=== PATIENT | male | born 1955 | race Caucasian/White ===

== ENCOUNTER 2018-05-06 20:37 | Emergency (ER) | payer OTHER ==
[~2018-05-06] VITALS: Ht 172.7 cm; Wt 124.7 kg
[~2018-05-06 20:37] MED LIST: CYCL10 PO; Mobic7.5 MG PO; Norco 5-325 Ta1 EACH PO; Prinivil10 MG PO
[2018-05-06] MEDS ORDERED: KETO10 PO (22:25)
== END 2018-05-06 22:32 | disposition home or self-care (01) ==
LOC: ER 20:37
DX: S83.8X2A Sprain of other specified parts of left knee, initial encounter (principal); X58.XXXA Exposure to other specified factors, initial encounter
CPT/HCPCS: 73562-LT; 99283-25

== ENCOUNTER 2018-10-20 08:08 | Day surgery (SDC) | payer OTHER ==
[~2018-10-20] VITALS: Ht 172.7 cm; Wt 122.2 kg
[~2018-10-20 08:08] MED LIST changes: +KETO10 PO
--- NOTE | 2018-10-20 09:06 | NUR ---
Ambulatory in Day Surgery History, Chart, Medications and Allergies reviewed before start of procedure. Lungs clear T/O to Auscultation. Patient confirms NPO status and agrees with scheduled surgery. Pre-Op teaching done. Pt verbalizes understanding.
--- NOTE | 2018-10-20 14:56 | NUR ---
pt able to wiggle toes and feels pressure from touch.
--- NOTE | 2018-10-20 17:28 | NUR ---
summary PT ARRIVED TO UNIT FROM PACU THIS AFTERNOON. AFTER INITIAL NUMBNESS AND TINGLING WORE OFF, PT STOOD W/EMERGENCY ROOM PHYSICIAN AND RN USING GAIT BELT AND WALKER AND TRANSFERRED TO RECLINER. NOW RECLINED IN RECLINER W/POLAR PACK AND PAS ON. MEDICATED PER ORDERS FOR PAIN. CALL LIGHT IN REACH.
[2018-10-20 23:12] LABS: BASOPHILS ABSOLUTE AUTO 0.02 K/mm3 (0.00-0.23); BASOPHILS PERCENT AUTO 0 % (0-2); EOSINOPHILS PERCENT AUTO 0 % (0-6); Hematocrit 44.5 % (37.0-53.0); Hemoglobin 14.8 g/dL (13.5-17.5); IMMATURE GRAN ABSOLUTE AUTO 0.06 K/mm3 (0.00-0.10); IMMATURE GRAN PERCENT AUTO 0 % (0-1); LYMPHOCYTES ABSOLUTE AUTO 0.77 K/mm3 (0.84-5.20); LYMPHOCYTES PERCENT AUTO 4 % (21-46); MONOCYTES ABSOLUTE AUTO 0.43 K/mm3 (0.16-1.47); MONOCYTES PERCENT AUTO 3 % (4-13); Mean Corpuscular HGB 29.5 pg (26.0-34.0); Mean Corpuscular HGB Conc 33.3 g/dL (31.5-36.5); Mean Corpuscular Volume 89 fL (80-100); Mean Platelet Volume 9.1 fL (9.1-12.4); NEUTROPHILS ABSOLUTE AUTO 16.15 K/mm3 (1.96-9.15); NEUTROPHILS PERCENT AUTO 93 % (41-73); Platelet Count 177 K/mm3 (150-400); RDW Coefficient Variation 14.4 % (11.7-14.2); Red Blood Cell Count 5.01 M/mm3 (4.30-5.90); White Blood Cell Count 17.43 K/mm3 (4.00-11.30)
[2018-10-20 23:28] LABS: Bun/Creatinine Ratio 18.5 (12.0-20.0); Calcium, Blood 8.4 mg/dL (8.5-10.1); Creatinine, Blood 1.35 mg/dL (0.60-1.20); Potassium, Blood 3.5 mmol/L (3.5-5.5)
[2018-10-21 00:28] LABS: Source, Urine Clean Catch
[2018-10-21 00:31] LABS: Bilirubin, Urine Neg (Neg); Blood, Urine 1+ (Neg); Glucose Qualitative, Urine 4+ (Neg); Ketones, Urine Neg (Neg); Leukocyte Esterase, Urine Neg (Neg); Nitrite, Urine Neg (Neg); Protein, Urine 2+ (Neg); Specific Gravity, Urine 1.015 (1.003-1.022); Urobilinogen, Urine NORM (Normal)
[2018-10-21 00:36] LABS: Appearance, Urine Clear (Clear); Color, Urine Yellow (P-Yellow)
[2018-10-21 00:45] LABS: Red Blood Cells, Urine 0-2 /hpf (0-2)
[2018-10-21 00:46] LABS: Bacteria Mod /hpf; Squamous Epithelial Cells Rare /hpf (Few)
[2018-10-21 04:13] LABS: BASOPHILS ABSOLUTE AUTO 0.02 K/mm3 (0.00-0.23); BASOPHILS PERCENT AUTO 0 % (0-2); EOSINOPHILS PERCENT AUTO 0 % (0-6); Hematocrit 44.2 % (37.0-53.0); Hemoglobin 14.6 g/dL (13.5-17.5); IMMATURE GRAN PERCENT AUTO 1 % (0-1); LYMPHOCYTES ABSOLUTE AUTO 1.08 K/mm3 (0.84-5.20); LYMPHOCYTES PERCENT AUTO 6 % (21-46); MONOCYTES ABSOLUTE AUTO 0.83 K/mm3 (0.16-1.47); MONOCYTES PERCENT AUTO 4 % (4-13); Mean Corpuscular HGB 29.3 pg (26.0-34.0); Mean Corpuscular Volume 89 fL (80-100); Mean Platelet Volume 9.6 fL (9.1-12.4); NEUTROPHILS ABSOLUTE AUTO 17.02 K/mm3 (1.96-9.15); NEUTROPHILS PERCENT AUTO 89 % (41-73); Platelet Count 187 K/mm3 (150-400); RDW Coefficient Variation 14.2 % (11.7-14.2); RDW Standard Deviation 45.7 fL (35.1-46.3); Red Blood Cell Count 4.99 M/mm3 (4.30-5.90); White Blood Cell Count 19.05 K/mm3 (4.00-11.30)
[2018-10-21 04:38] LABS: Anion Gap 7 mmol/L (6-16); Blood Urea Nitrogen 27 mg/dL (8-24); CHOL/HDL RATIO 5.7; CO2, Blood 30 mmol/L (21-32); Calcium, Blood 8.5 mg/dL (8.5-10.1); Chloride, Blood 101 mmol/L (98-108); Cholesterol 238 mg/dL (50-200); Creatinine, Blood 1.35 mg/dL (0.60-1.20); Glomerular Filtration Rate 57 (60-); Glucose, Blood 161 mg/dL (70-99); HDL Cholesterol 42 mg/dL (>39); Low Density Lipoprotein Chol 168 mg/dL (0-110); Magnesium, Blood 1.7 mg/dL (1.6-2.4); Potassium, Blood 3.2 mmol/L (3.5-5.5); Sodium, Blood 138 mmol/L (136-145); Triglycerides 140 mg/dL (30-160); Very Low Density Lipoprot Chol 28 mg/dL (6-32)
[2018-10-21 04:41] LABS: Thyroid Stimulating Hormone 0.426 uIU/mL (0.360-4.800)
--- NOTE | 2018-10-21 08:03 | NUR ---
SUMMARY POD #1 L TKA DRSG REMAINS C/D/I, PAIN MANAGED WITH PO PAIN MEDICATION. PT IS TOLERATING PO INTAKE, & VOIDING WNL. PT IS AMBULATING IN HALLS WITH 1 ASSIST USING FWW/GAIT BELT.
[2018-10-21] MEDS ORDERED: Percocet 5-3251 EACH PO (08:50)
[2018-10-21] MEDS ORDERED: XARELTO15 MG PO (08:51)
[2018-10-21] MEDS ORDERED: AMLO10 PO (15:32)
[2018-10-21] MEDS ORDERED: METF500 PO (15:32)
[2018-10-21] MEDS ORDERED: LEVFLO500 PO (15:33)
--- NOTE | 2018-10-21 18:10 | NUR ---
DISCHARGE PT WAS DISCHARGED AT APPROXIMATELY 1615. PT AND SIGNIFICANT OTHER WERE PROVIDED WITH WRITTEN AND VERBAL DISCHARGE INSTRUCTIONS. PT WAS PROVIDED WITH EDUCATION ABOUT ALL NEW MEDICATIONS. PT WAS ALSO EDUCATED BY DYLAN MILLER RN AND THIS RN REGARDING HYPERTENSION. MEDICATIONS CALLED TO PATIENTS PHARMACY, HARD SCRIPT PROVIDED FOR PAIN MEDICATION. PT EDUCATED CHECK BLOOD PRESSURE BEFORE TAKING BLOOD PRESSURE MEDICATION. PT WAS ALSO EDUCATED THAT HE WILL NEED TO FIND A PRIMARY CARE PROVIDER. PT WAS PROVIDED WITH A LIST OF ACCEPTING DOCTOR'S OFFICES. PT AND S/O REPORTED UNDERSTANDING DISCHARGE INSTRUCTIONS AFTER QUESTIONS WERE ANSWERED. PT WAS VERBALIZED FRUSTRATION THAT HE WAS EDUCATED ABOUT HYPERTENSION. VSS. WILL MONITOR UNTIL REPORT TO ONCOMING RN.
== END 2018-10-21 16:17 | disposition home or self-care (01) ==
LOC: SURS 08:08 → ORSCMMR 08:08 → ORD 10:00 → ORSCMMR 10:00 → SURS 13:36 → ORSCMMR 10-21 16:17
PROVIDERS: Nurse Practitioner Acute Care; Orthopaedic Surgery
PROC: 0SRD0JA Replacement of Left Knee Joint with Synthetic Substitute, Uncemented, Open Approach (ICD-10-PCS; principal; 2018-10-20 10:00)
DX: M17.12 Unilateral primary osteoarthritis, left knee (principal); G47.33 Obstructive sleep apnea (adult) (pediatric); F17.220 Nicotine dependence, chewing tobacco, uncomplicated; E66.01 Morbid (severe) obesity due to excess calories; Z68.41 Body mass index [BMI] 40.0-44.9, adult
CPT/HCPCS: 36415; 73560-LT; 80048; 80061; 81001; 82330; 83036; 83735; 84443; 85025; 86850; 86900; 86901; 87086; 88300; 97110; 97116; 97162; 97530; C1776; J0171; J0690; J0696; J0735; J1100; J1885; J2250; J2704; J2795; J7120

== ENCOUNTER 2018-12-19 12:53 | Emergency (ER) | payer OTHER ==
[~2018-12-19] VITALS: Ht 172.7 cm; Wt 112.9 kg
[~2018-12-19 12:53] MED LIST changes: +AMLO10 PO; +LEVFLO500 PO; +METF500 PO; +Percocet 5-3251 EACH PO; +XARELTO15 MG PO
[2018-12-19 13:32] LABS: BASOPHILS ABSOLUTE AUTO 0.02 K/mm3 (0.00-0.23); BASOPHILS PERCENT AUTO 0 % (0-2); EOSINOPHILS ABSOLUTE AUTO 0.19 K/mm3 (0.00-0.68); EOSINOPHILS PERCENT AUTO 2 % (0-6); Hematocrit 46.4 % (37.0-53.0); Hemoglobin 15.4 g/dL (13.5-17.5); IMMATURE GRAN ABSOLUTE AUTO 0.01 K/mm3 (0.00-0.10); IMMATURE GRAN PERCENT AUTO 0 % (0-1); LYMPHOCYTES PERCENT AUTO 12 % (21-46); MONOCYTES ABSOLUTE AUTO 0.37 K/mm3 (0.16-1.47); MONOCYTES PERCENT AUTO 4 % (4-13); Mean Corpuscular HGB 28.4 pg (26.0-34.0); Mean Corpuscular HGB Conc 33.2 g/dL (31.5-36.5); Mean Corpuscular Volume 86 fL (80-100); Mean Platelet Volume 9.6 fL (9.1-12.4); NEUTROPHILS ABSOLUTE AUTO 8.16 K/mm3 (1.96-9.15); NEUTROPHILS PERCENT AUTO 82 % (41-73); Platelet Count 215 K/mm3 (150-400); RDW Coefficient Variation 13.2 % (11.7-14.2); Red Blood Cell Count 5.42 M/mm3 (4.30-5.90); White Blood Cell Count 9.95 K/mm3 (4.00-11.30)
[2018-12-19 13:45] LABS: International Normalized Ratio 0.98; Prothrombin Time Results 10.4 Sec (9.7-11.5)
[2018-12-19 14:05] LABS: Alanine Aminotransfer (ALT/SGP 33 U/L (12-78); Albumin, Blood 3.4 g/dL (3.4-5.0); Alk Phos 90 U/L (50-136); Anion Gap 5 mmol/L (6-16); Aspartate Aminotrans (AST/SGOT 18 U/L (12-37); Bilirubin, Total 0.6 mg/dL (0.1-1.0); Blood Urea Nitrogen 21 mg/dL (8-24); Bun/Creatinine Ratio 18.1 (12.0-20.0); CO2, Blood 28 mmol/L (21-32); Calcium, Blood 8.9 mg/dL (8.5-10.1); Chloride, Blood 105 mmol/L (98-108); Creatinine, Blood 1.16 mg/dL (0.60-1.20); Globulin, Blood 3.4 g/dL (2.2-4.0); Glomerular Filtration Rate >60 (60-); Glucose, Blood 203 mg/dL (70-99); Sodium, Blood 138 mmol/L (136-145); Total Protein, Blood 6.8 g/dL (6.4-8.2)
[2018-12-19 18:31] LABS: Source, Urine Clean Catch
[2018-12-19 18:37] LABS: Bilirubin, Urine Neg (Neg); Blood, Urine 1+ (Neg); Glucose Qualitative, Urine Neg (Neg); Ketones, Urine Neg (Neg); Leukocyte Esterase, Urine Neg (Neg); Nitrite, Urine Neg (Neg); Protein, Urine 2+ (Neg); Specific Gravity, Urine 1.015 (1.003-1.022); Urobilinogen, Urine NORM (Normal)
[2018-12-19 18:43] LABS: Appearance, Urine Clear (Clear); Color, Urine Yellow (P-Yellow)
[2018-12-19 18:44] LABS: Mucus Light ({null, 0-Heavy}); Red Blood Cells, Urine 0-2 /hpf (0-2); White Blood Cells, Urine 0-2 /hpf (0-5)
[2018-12-19 18:45] LABS: Bacteria Few /hpf; Squamous Epithelial Cells Not Seen /hpf (Few)
[2018-12-19 19:51] LABS: U Amphetamine Screen Not Detected; U Barbituate Screen Not Detected; U Benzodiazapine Screen Not Detected; U Buprenorphine Screen Not Detected; U Cannabinoids Screen Not Detected; U Cocaine Screen Not Detected; U Methadone Screen Not Detected; U Methamphetamine Screen Not Detected; U Opiates Screen Not Detected; U Oxycodone Screen DETECTED; U Phencyclidine Screen Not Detected; U Propoxyphene Screen Not Detected
== END 2018-12-20 20:00 | disposition home or self-care (01) ==
LOC: ER 12:53
PROVIDERS: Emergency Medicine; Physician Assistant
DX: R47.1 Dysarthria and anarthria (principal); R25.1 Tremor, unspecified; Z79.899 Other long term (current) drug therapy
CPT/HCPCS: 36415; 70450; 70496; 70498; 80053; 81001; 85025; 85610; 93005; 93010; 99284-25; Q9967

== ENCOUNTER → 2020-12-02 | Outpatient (CLI) | payer OTHER ==
[2020-12-02 14:15] LABS: Stool Occult Bld Immuno 1 Positive (NEGATIVE)
== END | disposition home or self-care (01) ==
LOC: LAB SHORT 07:30 → LAB 07:30
PROVIDERS: Internal Medicine
DX: Z12.11 Encounter for screening for malignant neoplasm of colon (principal)
CPT/HCPCS: 82274

== ENCOUNTER → 2021-03-16 | Outpatient (CLI) | payer OTHER ==
[2021-03-17 13:59] LABS: Adenovirus F 40/41 Not Detected (NOT DETECT); Astrovirus Not Detected (NOT DETECT); Campylobacter Sp Not Detected (NOT DETECT); Cryptosporidium Not Detected (NOT DETECT); Cyclospora Cayetanensis Not Detected (NOT DETECT); E. Coli O157 Not Detected (NOT DETECT); Entamoeba Histolytica Not Detected (NOT DETECT); Enteroaggregative E. coli-EAEC Not Detected (NOT DETECT); Enteropathogenic E. coli-EPEC Not Detected (NOT DETECT); Enterotoxigenic E. coli-ETEC Not Detected (NOT DETECT); Giardia Lamblia Not Detected (NOT DETECT); Norovirus GI/GII Not Detected (NOT DETECT); Plesiomonas Shigelloides Not Detected (NOT DETECT); Rotavirus A Not Detected (NOT DETECT); Salmonella Sp Not Detected (NOT DETECT); Sapovirus Not Detected (NOT DETECT); Shiga Toxin-prod E. coli-STEC Not Detected (NOT DETECT); Shigella/Enteroin E. coli-EIEC Not Detected (NOT DETECT); Vibrio Cholerae Not Detected (NOT DETECT); Vibrio Sp Not Detected (NOT DETECT); Yersinia Enterocolitica Not Detected (NOT DETECT)
== END | disposition home or self-care (01) ==
LOC: LAB SHORT 10:33
PROVIDERS: Family Medicine
DX: K92.1 Melena (principal); R19.7 Diarrhea, unspecified
CPT/HCPCS: 0097U

== ENCOUNTER 2021-05-16 10:23 | Day surgery (SDC) | payer OTHER ==
[~2021-05-16] VITALS: Ht 172.7 cm; Wt 108.7 kg
[2021-05-16] MEDS ORDERED: POTA10T (10:50)
--- NOTE | 2021-05-16 12:11 | NUR ---
05/16/21 1211 Rama Leger 2ML NORMAL SALINE USED TO PRIME INJECTION NEEDLE
== END 2021-05-16 12:45 | disposition home or self-care (01) ==
LOC: ORSCSDS 10:23
PROVIDERS: Student in an Organized Health Care Education/Training Program
PROC: 0DBN8ZX Excision of Sigmoid Colon, Via Natural or Artificial Opening Endoscopic, Diagnostic (ICD-10-PCS; principal; 2021-05-16 12:15)
PROC: 3E0H8KZ Introduction of Other Diagnostic Substance into Lower GI, Via Natural or Artificial Opening Endoscopic (ICD-10-PCS; principal; 2021-05-16 12:15)
PROC: 0DBK8ZX Excision of Ascending Colon, Via Natural or Artificial Opening Endoscopic, Diagnostic (ICD-10-PCS; principal; 2021-05-16 12:15)
PROC: 0DBL8ZX Excision of Transverse Colon, Via Natural or Artificial Opening Endoscopic, Diagnostic (ICD-10-PCS; principal; 2021-05-16 12:15)
PROC: 0DBH8ZX Excision of Cecum, Via Natural or Artificial Opening Endoscopic, Diagnostic (ICD-10-PCS; principal; 2021-05-16 12:15)
DX: R93.3 Abnormal findings on diagnostic imaging of other parts of digestive tract (principal); R10.32 Left lower quadrant pain; C18.7 Malignant neoplasm of sigmoid colon; D12.3 Benign neoplasm of transverse colon; D12.2 Benign neoplasm of ascending colon; D12.0 Benign neoplasm of cecum; I10 Essential (primary) hypertension; G47.33 Obstructive sleep apnea (adult) (pediatric); E78.5 Hyperlipidemia, unspecified; E11.9 Type 2 diabetes mellitus without complications; N18.9 Chronic kidney disease, unspecified; F17.220 Nicotine dependence, chewing tobacco, uncomplicated
CPT/HCPCS: 88305; J2704; J7120

== ENCOUNTER 2021-05-29 02:39 | Day surgery (SDC) | payer OTHER ==
[~2021-05-29 02:39] MED LIST changes: +POTA10T
== END 2021-05-29 15:15 | disposition home or self-care (01) ==
LOC: ATC 02:39
DX: C18.9 Malignant neoplasm of colon, unspecified (principal); C79.51 Secondary malignant neoplasm of bone; E78.5 Hyperlipidemia, unspecified
CPT/HCPCS: 36569; C1751

== ENCOUNTER → 2021-05-31 | Outpatient (CLI) | payer OTHER ==
[2021-05-31 20:01] LABS: Albumin, Blood 3.3 g/dL (3.4-5.0); Albumin/Globulin Ratio 1.2 (0.8-1.8); Bilirubin, Total 0.4 mg/dL (0.1-1.0); Bun/Creatinine Ratio 12.7 (12.0-20.0); Calcium, Blood 8.7 mg/dL (8.5-10.1); Creatinine, Blood 1.26 mg/dL (0.60-1.20); Globulin, Blood 2.7 g/dL (2.2-4.0); Phosphorus, Blood 1.9 mg/dL (2.5-4.9); Potassium, Blood 3.2 mmol/L (3.5-5.5)
== END ==
LOC: LAB SHORT 09:07 → LAB 09:07
PROVIDERS: Internal Medicine Hematology & Oncology
DX: C18.9 Malignant neoplasm of colon, unspecified (principal)
CPT/HCPCS: 80053; 82378; 84100

== ENCOUNTER 2021-06-05 01:22 | Day surgery (SDC) | payer OTHER | END 2021-06-05 14:10 | disposition home or self-care (01) | LOC: ATC 01:22 | DX: Z45.2 Encounter for adjustment and management of vascular access device (principal); C18.9 Malignant neoplasm of colon, unspecified; C79.51 Secondary malignant neoplasm of bone; E78.5 Hyperlipidemia, unspecified | CPT/HCPCS: 99211 ==

== ENCOUNTER 2021-06-12 03:19 | Day surgery (SDC) | payer OTHER | END 2021-06-12 14:38 | disposition home or self-care (01) | LOC: ATC 03:19 | DX: C18.9 Malignant neoplasm of colon, unspecified (principal); C79.51 Secondary malignant neoplasm of bone | CPT/HCPCS: 36592 ==

== ENCOUNTER 2021-06-19 06:01 | Day surgery (SDC) | payer OTHER | END 2021-06-19 14:33 | disposition home or self-care (01) | LOC: ATC 06:01 | DX: Z45.2 Encounter for adjustment and management of vascular access device (principal); C18.9 Malignant neoplasm of colon, unspecified; C79.51 Secondary malignant neoplasm of bone; E78.5 Hyperlipidemia, unspecified | CPT/HCPCS: 99211 ==

== ENCOUNTER 2021-06-26 02:09 | Day surgery (SDC) | payer OTHER | END 2021-06-26 14:39 | disposition home or self-care (01) | LOC: ATC 02:09 | DX: C18.9 Malignant neoplasm of colon, unspecified (principal); C79.51 Secondary malignant neoplasm of bone; E78.5 Hyperlipidemia, unspecified | CPT/HCPCS: 99211 ==

== ENCOUNTER 2021-07-03 01:52 | Day surgery (SDC) | payer OTHER | END 2021-07-03 14:32 | disposition home or self-care (01) | LOC: ATC 01:52 | DX: Z45.2 Encounter for adjustment and management of vascular access device (principal); E78.5 Hyperlipidemia, unspecified; C18.9 Malignant neoplasm of colon, unspecified; C79.51 Secondary malignant neoplasm of bone | CPT/HCPCS: 99211 ==

== ENCOUNTER 2021-07-10 01:23 | Day surgery (SDC) | payer OTHER | END 2021-07-10 14:20 | disposition home or self-care (01) | LOC: ATC 01:23 | DX: Z45.2 Encounter for adjustment and management of vascular access device (principal); C18.9 Malignant neoplasm of colon, unspecified; C79.51 Secondary malignant neoplasm of bone | CPT/HCPCS: 99211 ==

== ENCOUNTER 2021-07-11 08:17 | Day surgery (SDC) | payer OTHER | END 2021-07-11 08:37 | disposition home or self-care (01) | LOC: ATC 08:17 | DX: Z45.2 Encounter for adjustment and management of vascular access device (principal); C18.9 Malignant neoplasm of colon, unspecified; C79.51 Secondary malignant neoplasm of bone | CPT/HCPCS: 99212 ==

== ENCOUNTER 2021-07-17 01:34 | Day surgery (SDC) | payer OTHER ==
--- NOTE | 2021-07-17 14:45 | NUR ---
PT'S BP ELEVATED, BP RE CHECK WITH MANUAL CUFF 140/110. PT CALLED DR. REYES'S OFFICE WHILE SITTING IN THE ROOM WITH THIS NURSING RESIDENT. DR. REYES STATES THAT PT HAS APPOINTMENT TOMORROW AND HE WILL FOLLOW UP WITH PT TOMORROW IN THE OFFICE RE: HIS ELEVATED BP. PT INSTRUCTED TO SEEK MEDICAL [place] BEFORE TOMORROW IF HE HAS ANY SYMPTOMS OF ELEVATED BP. PT VERBALIZES UNDERSTANDING.
== END 2021-07-17 14:45 | disposition home or self-care (01) ==
LOC: ATC 01:34
DX: C18.9 Malignant neoplasm of colon, unspecified (principal); C79.51 Secondary malignant neoplasm of bone
CPT/HCPCS: 99211

== ENCOUNTER 2021-07-24 14:25 | Day surgery (SDC) | payer OTHER ==
[2021-07-24] MEDS ORDERED: ONDA4ODT MM (15:31)
[2021-07-24] MEDS ORDERED: LOSARTAN POTASS25 M2 PO (15:31)
== END 2021-07-24 14:45 | disposition home or self-care (01) ==
LOC: ATC 14:25
DX: Z45.2 Encounter for adjustment and management of vascular access device (principal); C19 Malignant neoplasm of rectosigmoid junction; C79.51 Secondary malignant neoplasm of bone; E78.5 Hyperlipidemia, unspecified; Z96.652 Presence of left artificial knee joint
CPT/HCPCS: 99211

== ENCOUNTER 2021-07-31 01:29 | Day surgery (SDC) | payer OTHER ==
[~2021-07-31 01:29] MED LIST changes: +LOSARTAN POTASS25 M2 PO; +ONDA4ODT MM
== END 2021-07-31 15:05 | disposition home or self-care (01) ==
LOC: ATC 01:29
DX: C18.9 Malignant neoplasm of colon, unspecified (principal); C79.51 Secondary malignant neoplasm of bone; Z96.652 Presence of left artificial knee joint
CPT/HCPCS: 99211

== ENCOUNTER 2021-08-07 01:21 | Day surgery (SDC) | payer OTHER | END 2021-08-07 14:41 | disposition home or self-care (01) | LOC: ATC 01:21 | DX: C19 Malignant neoplasm of rectosigmoid junction (principal); C79.51 Secondary malignant neoplasm of bone | CPT/HCPCS: 99211 ==

== ENCOUNTER 2021-08-14 01:05 | Day surgery (SDC) | payer OTHER | END 2021-08-14 14:30 | disposition home or self-care (01) | LOC: ATC 01:05 | DX: Z45.2 Encounter for adjustment and management of vascular access device (principal); C18.9 Malignant neoplasm of colon, unspecified; C79.51 Secondary malignant neoplasm of bone; E78.5 Hyperlipidemia, unspecified | CPT/HCPCS: 99211 ==

== ENCOUNTER 2021-08-21 01:22 | Day surgery (SDC) | payer OTHER | END 2021-08-21 14:55 | disposition home or self-care (01) | LOC: ATC 01:22 | DX: C18.9 Malignant neoplasm of colon, unspecified (principal); C79.51 Secondary malignant neoplasm of bone; E78.5 Hyperlipidemia, unspecified | CPT/HCPCS: 99211 ==

== ENCOUNTER 2021-08-28 01:02 | Day surgery (SDC) | payer OTHER ==
--- NOTE | 2021-08-28 14:41 | NUR ---
PT EDUCATED REGARDING BP. PT VERBALIZES UNDERSTANDING AND STATES HE JUST TOOK A MID DAY DOSE OF HIS BP MEDICINE AT 1200.
== END 2021-08-28 14:32 | disposition home or self-care (01) ==
LOC: ATC 01:02
DX: Z45.2 Encounter for adjustment and management of vascular access device (principal); C18.9 Malignant neoplasm of colon, unspecified; C79.51 Secondary malignant neoplasm of bone
CPT/HCPCS: 99212

== ENCOUNTER 2021-09-11 13:54 | Day surgery (SDC) | payer OTHER | END 2021-09-11 14:14 | disposition home or self-care (01) | LOC: ATC 13:54 | DX: Z45.2 Encounter for adjustment and management of vascular access device (principal); C18.9 Malignant neoplasm of colon, unspecified; C79.51 Secondary malignant neoplasm of bone; E78.5 Hyperlipidemia, unspecified; Z79.899 Other long term (current) drug therapy | CPT/HCPCS: 99211 ==

== ENCOUNTER 2021-09-15 02:48 | Day surgery (SDC) | payer OTHER | END 2021-09-15 09:56 | disposition home or self-care (01) | LOC: ATC 02:48 | DX: C18.9 Malignant neoplasm of colon, unspecified (principal); C79.51 Secondary malignant neoplasm of bone | CPT/HCPCS: 99211 ==

== ENCOUNTER 2021-09-18 01:58 | Emergency (ER) | payer OTHER ==
[~2021-09-18] VITALS: Ht 172.7 cm; Wt 108.0 kg
[2021-09-18 03:54] LABS: BASOPHILS ABSOLUTE AUTO 0.04 K/mm3 (0.00-0.23); BASOPHILS PERCENT AUTO 0 % (0-2); EOSINOPHILS ABSOLUTE AUTO 0.22 K/mm3 (0.00-0.68); EOSINOPHILS PERCENT AUTO 2 % (0-6); Hematocrit 42.2 % (37.0-53.0); Hemoglobin 13.4 g/dL (13.5-17.5); IMMATURE GRAN ABSOLUTE AUTO 0.04 K/mm3 (0.00-0.10); IMMATURE GRAN PERCENT AUTO 0 % (0-1); LYMPHOCYTES ABSOLUTE AUTO 1.49 K/mm3 (0.84-5.20); LYMPHOCYTES PERCENT AUTO 14 % (21-46); MONOCYTES ABSOLUTE AUTO 0.39 K/mm3 (0.16-1.47); MONOCYTES PERCENT AUTO 4 % (4-13); Mean Corpuscular HGB 25.1 pg (26.0-34.0); Mean Corpuscular HGB Conc 31.8 g/dL (31.5-36.5); Mean Corpuscular Volume 79 fL (80-100); Mean Platelet Volume 10.1 fL (9.1-12.4); NEUTROPHILS ABSOLUTE AUTO 8.33 K/mm3 (1.96-9.15); NEUTROPHILS PERCENT AUTO 79 % (41-73); Platelet Count 150 K/mm3 (150-400); RDW Coefficient Variation 19.2 % (11.7-14.2); RDW Standard Deviation 53.6 fL (35.1-46.3); Red Blood Cell Count 5.34 M/mm3 (4.30-5.90); White Blood Cell Count 10.51 K/mm3 (4.00-11.30)
[2021-09-18 04:14] LABS: Albumin, Blood 3.2 g/dL (3.4-5.0); Albumin/Globulin Ratio 0.9 (0.8-1.8); Bilirubin, Total 0.8 mg/dL (0.1-1.0); Bun/Creatinine Ratio 17.1 (12.0-20.0); Calcium, Blood 9.2 mg/dL (8.5-10.1); Creatinine, Blood 0.94 mg/dL (0.60-1.20); Globulin, Blood 3.6 g/dL (2.2-4.0); Potassium, Blood 3.3 mmol/L (3.5-5.5); Total Protein, Blood 6.8 g/dL (6.4-8.2)
[2021-09-18] MEDS ORDERED: Percocet 5-3251 EACH PO (05:15)
== END 2021-09-18 05:35 | disposition home or self-care (01) ==
LOC: ER 01:58
PROVIDERS: Emergency Medicine
DX: R10.10 Upper abdominal pain, unspecified (principal); C18.9 Malignant neoplasm of colon, unspecified; Z79.899 Other long term (current) drug therapy
CPT/HCPCS: 36415; 74177; 80053; 83605; 83690; 84484; 85025; 93005; 93010; J2270; Q9967

== ENCOUNTER 2021-09-25 00:58 | Day surgery (SDC) | payer OTHER | END 2021-09-25 14:13 | disposition home or self-care (01) | LOC: ATC 00:58 | DX: Z45.2 Encounter for adjustment and management of vascular access device (principal); C18.9 Malignant neoplasm of colon, unspecified; C79.51 Secondary malignant neoplasm of bone | CPT/HCPCS: 99211 ==

== ENCOUNTER 2021-10-02 01:05 | Day surgery (SDC) | payer OTHER | END 2021-10-02 14:39 | disposition home or self-care (01) | LOC: ATC 01:05 | DX: C18.9 Malignant neoplasm of colon, unspecified (principal); C79.51 Secondary malignant neoplasm of bone; E78.5 Hyperlipidemia, unspecified | CPT/HCPCS: 99211 ==

== ENCOUNTER 2021-10-09 02:11 | Day surgery (SDC) | payer OTHER | END 2021-10-09 14:22 | disposition home or self-care (01) | LOC: ATC 02:11 | DX: C18.9 Malignant neoplasm of colon, unspecified (principal); C79.51 Secondary malignant neoplasm of bone; E78.5 Hyperlipidemia, unspecified | CPT/HCPCS: 99211 ==

== ENCOUNTER 2021-10-17 00:42 | Day surgery (SDC) | payer OTHER | END 2021-10-17 14:13 | disposition home or self-care (01) | LOC: ATC 00:42 | DX: C18.9 Malignant neoplasm of colon, unspecified (principal); C79.51 Secondary malignant neoplasm of bone | CPT/HCPCS: 99211 ==

== ENCOUNTER 2021-10-24 04:43 | Day surgery (SDC) | payer OTHER | END 2021-10-24 14:30 | disposition home or self-care (01) | LOC: ATC 04:43 | DX: Z45.2 Encounter for adjustment and management of vascular access device (principal); C18.9 Malignant neoplasm of colon, unspecified; C79.51 Secondary malignant neoplasm of bone; E78.5 Hyperlipidemia, unspecified | CPT/HCPCS: 99212 ==

== ENCOUNTER 2021-10-30 05:50 | Day surgery (SDC) | payer OTHER | END 2021-10-30 14:20 | disposition home or self-care (01) | LOC: ATC 05:50 | DX: Z45.2 Encounter for adjustment and management of vascular access device (principal); C19 Malignant neoplasm of rectosigmoid junction; C79.51 Secondary malignant neoplasm of bone | CPT/HCPCS: 99211 ==

== ENCOUNTER → 2021-11-08 | Outpatient (CLI) | payer OTHER ==
[2021-11-08 14:58] LABS: Source, Urine Voided
[2021-11-08 17:32] LABS: Appearance, Urine Clear (Clear); Bilirubin, Urine Neg (Neg); Blood, Urine Neg (Neg); Color, Urine Yellow (P-Yellow); Glucose Qualitative, Urine 2+ (Neg); Ketones, Urine Neg (Neg); Leukocyte Esterase, Urine Neg (Neg); Nitrite, Urine Neg (Neg); Protein, Urine 2+ (Neg); Specific Gravity, Urine 1.015 (1.003-1.022); Urobilinogen, Urine NORM (Normal)
[2021-11-08 18:06] LABS: Bacteria Few /hpf; Hyaline Casts 0-2 /lpf (0-2); Red Blood Cells, Urine 0-2 /hpf (0-2); Squamous Epithelial Cells Rare /hpf (Few); White Blood Cells, Urine 0-2 /hpf (0-5)
== END | disposition home or self-care (01) ==
LOC: LAB 12:24 → LAB SHORT 12:24
PROVIDERS: Internal Medicine Hematology & Oncology
DX: R30.0 Dysuria (principal)
CPT/HCPCS: 81001

== ENCOUNTER 2022-03-01 15:53 | Emergency (ER) | payer OTHER ==
[~2022-03-01] VITALS: Ht 172.7 cm; Wt 111.1 kg
[2022-03-01] MEDS ORDERED: CEPH500 PO (16:09)
== END 2022-03-01 16:19 | disposition home or self-care (01) ==
LOC: ER 15:53
DX: T81.31XA Disruption of external operation (surgical) wound, not elsewhere classified, initial encounter (principal); Y83.8 Other surgical procedures as the cause of abnormal reaction of the patient, or of later complication, without mention of misadventure at the time of the procedure; Z79.899 Other long term (current) drug therapy
CPT/HCPCS: 12020; 99282-25

== ENCOUNTER 2023-01-13 12:34 | Emergency (ER) | payer OTHER ==
[~2023-01-13] VITALS: Ht 172.7 cm; Wt 120.2 kg
[~2023-01-13 12:34] MED LIST changes: +CEPH500 PO
[2023-01-13 13:21] VITALS: BP 174/75
== END 2023-01-13 16:17 | disposition home or self-care (01) ==
LOC: ER 12:34
DX: M25.562 Pain in left knee (principal); Z79.899 Other long term (current) drug therapy
CPT/HCPCS: 76882; 93971; 96374; 99283-25; A9270; J1885

== ENCOUNTER → 2023-02-26 | Outpatient (CLI) | payer OTHER ==
[2023-03-05 07:12] LABS: METANEPH/CREAT RATIO 0.3 (0.0-1.0)
== END ==
LOC: LAB 12:16 → LAB SHORT 12:16
PROVIDERS: Internal Medicine Nephrology
DX: N25.81 Secondary hyperparathyroidism of renal origin (principal); E55.9 Vitamin D deficiency, unspecified; E78.00 Pure hypercholesterolemia, unspecified
CPT/HCPCS: 82570; 83835

== ENCOUNTER → 2023-08-22 | Outpatient (CLI) | payer OTHER ==
[2023-08-22 18:49] LABS: BASOPHILS ABSOLUTE AUTO 0.04 K/mm3 (0.00-0.23); BASOPHILS PERCENT AUTO 0 % (0-2); EOSINOPHILS ABSOLUTE AUTO 0.32 K/mm3 (0.00-0.68); EOSINOPHILS PERCENT AUTO 3 % (0-6); Hematocrit 46.2 % (37.0-53.0); Hemoglobin 14.8 g/dL (13.5-17.5); IMMATURE GRAN ABSOLUTE AUTO 0.02 K/mm3 (0.00-0.10); IMMATURE GRAN PERCENT AUTO 0 % (0-1); LYMPHOCYTES ABSOLUTE AUTO 2.03 K/mm3 (0.84-5.20); LYMPHOCYTES PERCENT AUTO 21 % (21-46); MONOCYTES ABSOLUTE AUTO 0.43 K/mm3 (0.16-1.47); MONOCYTES PERCENT AUTO 5 % (4-13); Mean Corpuscular HGB 26.6 pg (26.0-34.0); Mean Corpuscular Volume 83 fL (80-100); Mean Platelet Volume 10.2 fL (9.1-12.4); NEUTROPHILS ABSOLUTE AUTO 6.64 K/mm3 (1.96-9.15); NEUTROPHILS PERCENT AUTO 70 % (41-73); Platelet Count 165 K/mm3 (150-400); RDW Coefficient Variation 15.5 % (11.7-14.2); RDW Standard Deviation 46.6 fL (35.1-46.3); Red Blood Cell Count 5.57 M/mm3 (4.30-5.90); White Blood Cell Count 9.48 K/mm3 (4.00-11.30)
[2023-08-22 19:27] LABS: Alanine Aminotransfer (ALT/SGP 31 U/L (12-78); Albumin, Blood 3.1 g/dL (3.4-5.0); Alk Phos 88 U/L (50-136); Anion Gap 11 mmol/L (3-11); Aspartate Aminotrans (AST/SGOT 19 U/L (12-37); Bilirubin, Total 0.4 mg/dL (0.1-1.0); Blood Urea Nitrogen 25 mg/dL (8-24); Bun/Creatinine Ratio 21.6 (12.0-20.0); CO2, Blood 26 mmol/L (21-32); Calcium, Blood 8.5 mg/dL (8.5-10.1); Chloride, Blood 105 mmol/L (98-108); Cholesterol 203 mg/dL (50-200); Creatinine, Blood 1.16 mg/dL (0.60-1.20); Globulin, Blood 3.2 g/dL (2.2-4.0); Glomerular Filtration Rate 70 (60-); Glucose, Blood 296 mg/dL (70-99); HDL Cholesterol 29 mg/dL (>39); LDL/HDL RATIO 4.8; Low Density Lipoprotein Chol 140 mg/dL (0-110); Potassium, Blood 3.7 mmol/L (3.5-5.5); Sodium, Blood 138 mmol/L (136-145); Total Protein, Blood 6.3 g/dL (6.4-8.2); Triglycerides 172 mg/dL (30-160); Very Low Density Lipoprot Chol 34 mg/dL (6-32)
== END ==
LOC: LAB 10:00 → LAB SHORT 10:00
PROVIDERS: Nurse Practitioner Family
DX: E11.59 Type 2 diabetes mellitus with other circulatory complications (principal)
CPT/HCPCS: 80053; 80061; 83036; 85025